=== PATIENT | male | born 1970 | race Caucasian/White ===

== ENCOUNTER 2020-12-19 13:04 | Emergency (ER) | payer OTHER, SELFPAY ==
[2020-12-19] MEDS ORDERED: Boostrix 0.5 ML (Tdap) VIAL ONE (13:22)
[2020-12-19] MEDS ORDERED: Lidocaine 1% PF 5 ML VIAL ONE (13:22)
[2020-12-19] MEDS ORDERED: Bacitracin 1 PK ONE (14:18)
--- NOTE | 2020-12-19 14:20 | RAD ---
RADIOGRAPH LEFT KNEE 4VIEWS: DATE: 12/19/2020 HISTORY: 50-year-old male status post acute knee laceration with chain saw FINDINGS: There is no evidence of fracture or dislocation. There is no evidence of periostitis, permeative lesi on, osteolytic lesion, or osteoblastic lesion. The joint spaces are maintained without erosions or high-grade osteophytes. Tiny osteophytes at patellofemoral compartment. No joint effusion is identifi ed. Superficial soft tissue defect suprapatellar region, with underlying soft tissue hematoma. IMPRESSION: 1. Anterior soft tissue laceration with underlying superficial soft tissue hematoma. 2. No significant osseous abnormality.
== END 2020-12-19 14:54 | disposition home or self-care (01) ==
LOC: ERS 13:04
DX: S81.012A Laceration without foreign body, left knee, initial encounter (principal); W29.3XXA Contact with powered garden and outdoor hand tools and machinery, initial encounter
CPT/HCPCS: 12002; 90471; 90715